=== PATIENT | female | born 1975 | race Hispanic/Latino ===

== ENCOUNTER 2017-08-02 08:27 | Outpatient (CLI) | payer OTHER | END 2017-08-02 08:28 | disposition home or self-care (01) | LOC: BICMAMMO 08:27 | PROVIDERS: ATTEND Nurse Practitioner Family | DX: Z80.3 Family history of malignant neoplasm of breast; Z12.31 Encounter for screening mammogram for malignant neoplasm of breast | CPT/HCPCS: 77063; 77067 ==

== ENCOUNTER 2017-09-25 15:09 | Outpatient (CLI) | payer OTHER | END 2017-09-25 15:10 | disposition home or self-care (01) | LOC: BICRAD 15:09 | PROVIDERS: ATTEND Internal Medicine Interventional Cardiology | DX: M25.561 Pain in right knee (principal); M17.11 Unilateral primary osteoarthritis, right knee ==

== ENCOUNTER 2017-12-31 17:25 | Emergency (ER) | payer OTHER ==
--- NOTE | 2017-12-31 18:00 | RAD ---
THREE VIEWS OF THE RIGHT WRIST: 12/31/17 INDICATION: Fall at [facility] with right wrist pain. COMPARISON: None. IMPRESSION: No acute fracture or subluxation is evident. Soft tissues are normal appearing. Carpal alignment appe ars within normal limits. POS: [facility]
--- NOTE | 2017-12-31 18:02 | RAD ---
THREE VIEWS OF THE RIGHT ANKLE: 12/31/17 INDICATION: Fall at [facility] with right ankle pain. COMPARISON: None. IMPRESSION: No acute fracture or subluxation is evident. POS: [facility]
--- NOTE | 2017-12-31 18:06 | RAD ---
FOUR VIEWS OF THE RIGHT KNEE: 12/31/17 INDICATION: Fall at [facility] [place] with right knee pain. COMPARISON: None. FINDINGS: There is mild osteoarthrosis of the right knee predominantly affecting the patellofemoral and medial femorotibial joint compartments. There is some cortical incongruity and a vertically oriented lucency extending through the patella on the AP and oblique views. This is not as well as seen on the latera l view. There is mild joint capsular distention. IMPRESSION: 1. Findings suspicious for a minimally displaced vertically oriented fracture involving the ortega lla. A dedicated sunrise view of the right knee may be helpful for improved characterization. Alterna tively, right knee CT examination may be helpful. 2. Mild osteoarthrosis of the right knee. POS: [facility]
[2017-12-31] MEDS ORDERED: HYDROcodone/Acetaminophen 10/325 mg Tablet ONE (19:05)
--- NOTE | 2017-12-31 21:43 | CT ---
CT OF THE RIGHT KNEE WITHOUT CONTRAST: 12/31/17 INDICATION: History of fall with concern for possible right patellar knee fracture as seen on the radiograph perf ormed earlier on 12/31/17. FINDINGS: There is a very sublte lucency involving the central aspect of the patella running in a vertical orie ntation, best seen on image 49 of series 3, suspicious for nutrient foramina. No definite cortical st ep-off is seen to suggest presence of a patellar fracture. There is mild osteoarthrosis involving the patellofemoral as well as the femorotibial compartment. Proximal tibiofibular articulation appears w ithin normal limits. There is mild joint capsular distention. The extensor mechanism appears intact. IMPRESSION: 1. Lucency suggested on the prior radiograph is likely related to the trabeculation pattern of t he patella related to nutrient foramina. No definite nondisplaced fracture is evident. 2. Mild osteoarthrosis of the right knee. POS: [facility]
== END 2017-12-31 21:37 | disposition home or self-care (01) ==
LOC: ERS 17:25
DX: S83.91XA Sprain of unspecified site of right knee, initial encounter (principal); F41.9 Anxiety disorder, unspecified; W18.30XA Fall on same level, unspecified, initial encounter

== ENCOUNTER 2018-01-24 09:55 | Outpatient (CLI) | payer OTHER ==
--- NOTE | 2018-01-24 12:39 | MRI ---
MRI RIGHT KNEE WITHOUT CONTRAST: INDICATIONS: History of right knee contusion with popping and cracking of the right knee. History of fall. COMPARISON: Right knee radiograph dated 12/31/[address] evaluation of the right knee dated 12/31/2017. FINDINGS: No appreciable joint effusion is evident. No popliteal cyst is identified. The iliotibial band and popliteus appear within normal limits. There is a horizontally oriented oblique tear involving the anterior junction and body of the media m eniscus with partial medial extrusion. There is some mucoid degeneration seen involving the posterio r aspect of the body of the medial meniscus. There is prominent intrameniscal degeneration involving the body and posterior horn of the lateral meniscus. The ACL, PCL, MCL, and LCLC are intact. The extensor mechanism is intact. There is moderate diffuse chondrosis involving the medial tibiofemoral joint compartment with an area of near full-thickness c hondral thinning seen involving the central aspect of the medial femoral condyle, measuring approxima tely 3 x 2 cm. There are prominent marginal osteophytes affecting all major compartments of the righ t knee. No large full-thickness defect is seen involving the lateral tibiofemoral or patellofemoral compartments. There is some mild surface chondrosis involving the medial patellar ridge and medial p atellar facet. IMPRESSION: 1. Mild osteoarthrosis of the right knee. 2. Medial meniscal tear. 3. Intrameniscal degeneration of the medial and lateral meniscus. POS: [facility]
== END 2018-01-24 09:56 | disposition home or self-care (01) ==
LOC: TBSIIMAG 09:55
PROVIDERS: ATTEND Orthopaedic Surgery
DX: S80.01XA Contusion of right knee, initial encounter (principal); M23.351 Other meniscus derangements, posterior horn of lateral meniscus, right knee; M23.331 Other meniscus derangements, other medial meniscus, right knee; M23.361 Other meniscus derangements, other lateral meniscus, right knee; M17.11 Unilateral primary osteoarthritis, right knee

== ENCOUNTER 2018-02-04 12:55 | Outpatient (CLI) | payer OTHER ==
[2018-02-04 13:49] LABS: #Basophils 0.1 thou/uL (0.0-0.2); #Eosinphils 0.3 thou/uL (0.0-0.7); #Lymphocytes 3.8 thou/uL (1.20-3.40); #Monocytes 0.7 thou/uL (0.11-0.59); #Neutrophils 5.4 thou/uL (1.40-6.50); %Basophils 0.9 % (0.0-1.0); %Eosinophils 2.5 % (0.0-10.0); %Lymphocytes 37.1 % (21.0-51.0); %Monocytes 6.4 % (0.0-10.0); %Neutrophils 53.1 % (42.0-75.0); Hemoglobin 14.7 g/dL (12.0-16.0); Mean Corpuscular HGB CONC 32.9 g/dL (32.0-36.0); Mean Corpuscular Hemoglobin 29.7 pg (27.0-31.0); Mean Corpuscular Volume 90.3 fL (78.0-98.0); Mean Platelet Volume 7.2 fL (7.4-10.4); Platelet Count 433 thou/uL (130-400); RBC Distribution Width 11.6 % (11.5-14.5); Red Blood Cell (RBC) Count 4.96 mill/uL (4.20-5.40); White Blood Cell (WBC) Count 10.2 thou/uL (4.8-10.8)
[2018-02-04 14:20] LABS: Anion Gap 13 mmol/L (10-20); BUN (Urea Nitrogen) 14 mg/dL (7.0-18.7); Calc. Creatinine Clearance 0 mL/min (70-130); Calcium 9.4 mg/dL (7.8-10.44); Carbon Dioxide 24 mmol/L (22-29); Chloride 106 mmol/L (98-107); Estimated GFR-MDRD 83; Glucose 78 mg/dL (70-105); Potassium 4.2 mmol/L (3.5-5.1); Sodium 139 mmol/L (136-145)
--- NOTE | 2018-02-04 17:47 | EKG ---
Test Reason : Blood Pressure : / mmHG Vent. Rate : 066 BPM Atrial Rate : 066 BPM P-R Int : 144 ms QRS Dur : 082 ms QT Int : 404 ms P-R-T Axes : 039 035 042 degrees QTc Int : 423 ms Normal sinus rhythm Normal ECG When compared with ECG of 15-DEC-2000 15:02, No significant change was found Confirmed by DR. William SALAZAR ([id number]) on 02/04/2018 5:47:42 PM Referred By: JESSIE Confirmed By:DR. William SALAZAR
== END 2018-02-04 12:56 | disposition home or self-care (01) ==
LOC: LABBT 12:55
PROVIDERS: ATTEND Orthopaedic Surgery
DX: Z01.818 Encounter for other preprocedural examination (principal); S83.241A Other tear of medial meniscus, current injury, right knee, initial encounter
CPT/HCPCS: 80048; 85025; 93005; 93010

== ENCOUNTER → 2018-02-05 | Day surgery (SDC) | payer OTHER ==
[2018-02-04 13:34] VITALS: BMI 40.1
--- NOTE | 2018-02-04 13:57 | HP ---
HISTORY OF PRESENT ILLNESS: The patient is a 42-year-old female who injured her right knee when she slipped and fell at [facility] on 12/30/2017. She has had persistent pain, popping, catching, and swell ing despite rest, restriction of activities and use of antiinflammatory medications. She has also us ed a knee immobilizer. She has had no previous knee problems. PAST MEDICAL HISTORY: The patient is otherwise in good health. She has no major medical problems. CURRENT MEDICATIONS: She is not taking any routine medications. ALLERGIES: She has no known allergies. FAMILY HISTORY/SOCIAL HISTORY/REVIEW OF SYSTEMS: Otherwise unremarkable. PHYSICAL EXAMINATION: GENERAL: Reveals a healthy heavyset female. HEENT: Unremarkable. NECK: Supple. CHEST: Clear. HEART: Regular rate and rhythm. ABDOMEN: Soft, nontender. PELVIC/RECTAL/BREAST: Exams are deferred. EXTREMITIES: Pertinent findings of the right knee. There is no definite effusion or erythema. Ther e is normal alignment. There is tenderness over the medial joint line. There is pain with Reginald' s maneuver. Range of motion is 0 to 125 degrees. There is no instability. Neurovascular exam is in tact. Distal pulses are trace. There is a mildly right antalgic gait. Neurovascular exam is intact . LABORATORY AND X-RAY FINDINGS: X-rays of the right knee taken on 12/31/2017 revealed a questionable nondisplaced vertical fracture of the patella and some mild medial joint space narrowing. CT scan pe rformed on the same day revealed no definite fractures. Subsequent standing x-rays reveal some narro wing medially, but there is still reasonable joint space remaining. MRI scan of the right knee revea ls mild degenerative changes and a medial meniscal tear. IMPRESSION: Internal derangement of right knee with medial meniscal tear, possible component of dege nerative joint disease. PLAN: Arthroscopy right knee with partial medial meniscectomy and/or debridement and shaving. The n ature of the surgery, length of recovery, and potential complications such as infection, loss of sarai on, incomplete relief, neurovascular injury, thromboembolic phenomena, post-traumatic degenerative ar thritis, recurrent tear and need for additional treatment or repeat surgery have been discussed in de tail.
[~2018-02-05] MED LIST: Bupivacaine HCl 0.5%/Epinephrine 1:200,000/PF 30 ml Vial ONE; CEFAZOLIN/Water 2 GM/20 ML SYRINGE ONE; Fentanyl 100 MCG/2 ML VIAL ONE; Midazolam HCl 2 mg/2 ml Vial ONE; Morphine 4 MG/ML VIAL ONE
--- NOTE | 2018-02-05 13:03 | OP ---
DATE OF PROCEDURE: 02/05/2018 SURGEON: Randolph Aguilar M.D. ANESTHESIA: General. PREOPERATIVE DIAGNOSES: Medial meniscal tear, degenerative joint disease right knee. POSTOPERATIVE DIAGNOSES: Medial meniscal tear, degenerative joint disease right knee. PROCEDURE: Arthroscopy right knee with partial medial meniscectomy. OPERATIVE FINDINGS: Examination under anesthesia showed the knee to be stable. At arthroscopy, ther e was grade II and grade III changes of the central portion of the patella, but no areas of exposed b one. Examination of the medial compartment revealed diffuse grade II and III changes of the weightbe aring surface of the medial femoral condyle and a complex tear of the mid and posterior horns of the medial meniscus. There was also approximately a 1 x 1.5 cm area of exposed bone on the medial edge o f the medial tibial plateau. ACL was intact. There were some mild degenerative changes in the later al compartment and some very minimal fraying of the free border of the lateral meniscus, but it was i ntact. No areas needing debridement. NARRATIVE REPORT: After satisfactory anesthesia was induced in the supine position, the patient was placed in a leg quevedo and prepped and draped in the routine manner. The right leg was elevated, exs anguinated with an Esmarch bandage, and the tourniquet inflated to 300 mmHg. [place] arthroscope was introduced into the anterolateral portal, probe through an anteromedial portal, and inflow and outfl ow accomplished through the scope using the WhoSay arthroscopy pump. Arthroscopy was carried out an d the above findings were noted. Intermittently, instruments and camera were interchanged between th e anteromedial and anterolateral portals for best visualization. The posterior horn and mid aspect o f the medial meniscus was debrided with the use of basket forceps and motorized shaver. The remainin g rim was contoured and probed and found to be stable. There was still intact rim of approximately 2 -3 mm. The medial femoral condyle was debrided as was the patella articular surface. All compartmen ts were again visualized and no additional pathology found. The knee was copiously irrigated through the scope and all instruments were withdrawn. 20 mL of 0.5% Marcaine with epinephrine was instilled into the knee joint and an additional 10 mL injected about the portal sites. The portal sites were closed with 3-0 nylon and a sterile bulky compressive dressing was applied and the tourniquet deflate d after 22 minutes. The foot promptly pinked up. The patient was awakened and taken to [facility] in stable condition. There were no apparent intraoperative complications. The estimated blood los s was negligible. The patient will be discharged home in satisfactory condition, instructed on ice, elevation, use of c rutches, and home exercise program with the Physical Therapy Department. She was given written wound care instructions and prescription for [place] 7.5 for pain, 40 tablets. She will be rechecked by my medical delivery driver in approximately 10 days for suture removal and will be rechecked in my office by mekhi newton in approximately 3 weeks or sooner if there are any problems prior to that time.
== END ==
LOC: SDC 05:51
PROVIDERS: ATTEND Orthopaedic Surgery
PROC: 0SBC4ZZ Excision of Right Knee Joint, Percutaneous Endoscopic Approach (ICD-10-PCS; principal; 2018-02-05)
DX: S83.241A Other tear of medial meniscus, current injury, right knee, initial encounter (principal); W01.0XXA Fall on same level from slipping, tripping and stumbling without subsequent striking against object, initial encounter
CPT/HCPCS: 80048; 85025; 93005; 93010; 96374; G8978-GP-CL; G8979-GP-CL; G8980-GP-CL; J0670; J2250; J2270; J3010

== ENCOUNTER 2018-06-06 07:25 | Outpatient (CLI) | payer OTHER ==
--- NOTE | 2018-06-06 09:49 | MRI ---
MRI OF LUMBAR SPINE NONCONTRAST: INDICATION: Lumbar radiculopathy. FINDINGS: No acute marrow edema. Conus medullaris is normal in morphology and terminates at the T12-L1 level. There is scattered intrinsic T1 hyperintensity of the imaged low thoracic and lumbar spine vertebrae likely relating to interosseous hemangiomas. No acute pathology of the visualized retroperitoneum. L5-S1: There is no significant central canal or foraminal stenosis. L4-5: Mild central canal stenosis due to broad-based disk bulge with a small focal central protrusio n. No significant foraminal stenosis. There is reduced T2 signal of the disk compatible with degene ration. L3-4: No significant central canal or neural foraminal compromise. L2-3: No significant central canal or neural foraminal compromise. L1-2: No central canal or neural foraminal compromise. IMPRESSION: 1. Disk bulge and small superimposed central protrusion at L4-5, with mild central canal stenosis. 2. Additional findings are detailed above. POS: [facility]
== END 2018-06-06 07:26 | disposition home or self-care (01) ==
LOC: BICMRI 07:25
PROVIDERS: ATTEND Neurological Surgery
DX: M51.16 Intervertebral disc disorders with radiculopathy, lumbar region (principal); M48.061 Spinal stenosis, lumbar region without neurogenic claudication
CPT/HCPCS: 72148

== ENCOUNTER 2018-07-14 05:34 | Day surgery (SDC) | payer OTHER ==
[2018-07-08 08:53] VITALS: BMI 43.4
[2018-07-14] MEDS ORDERED: Fentanyl 250 MCG/5 ML VIAL ONE (06:13)
[2018-07-14] MEDS ORDERED: Midazolam HCl 2 mg/2 ml Vial ONE (06:13)
[2018-07-14] MEDS ORDERED: Thrombin 5000 UNITS/5 ML VIAL ONE (06:18)
[2018-07-14] MEDS ORDERED: Bupivacaine HCl 0.5%/Epinephrine 1:200,000/PF 30 ml Vial ONE (06:18)
[2018-07-14] MEDS ORDERED: Fentanyl 100 MCG/2 ML VIAL ONE ×3 (08:21→09:06)
[2018-07-14] MEDS ORDERED: Morphine 4 MG/ML VIAL ONE (08:43)
--- NOTE | 2018-07-14 09:19 | OP ---
DATE OF PROCEDURE: 07/14/2018 SENIOR GL ACCOUNTANT: Zbigniew Warren PA-C INDICATION: Pain. DIAGNOSES: Lumbar stenosis with lumbar radiculopathy. PROCEDURES PERFORMED: L4-L5 bilateral hemilaminectomy, medial facetectomy, and decompression. ANESTHESIA: General. DESCRIPTION OF PROCEDURE: The patient was brought into the operating room, placed under general anesthesia. She was flipped from the supine to prone position on the operating room table. A linear incision was planned over L4-L5. After prepping and draping and after preoperative pause, the incision was created. The soft tissues were swept away from midline. A self-retaining retractor was placed. After identifying the appropriate level of C-arm fluoroscopy, a bilateral hemilaminectomy was performed at the L4-L5 interspace. A high-speed cutting drill bit as well as 2, 3, and 4 mm Kerrisons were used to perform a hemilaminectomy along the inferior aspect of L4 and the superior aspect of L5, so both descending L5 nerve roots were well decompressed. The wound was irrigated. Hemostasis was maintained throughout. The wound was then closed in anatomic layers and a pressure dressing was applied. There were no known procedural complications. Job ID: [id number]
[2018-07-14] MEDS ORDERED: HYDROmorphone 2 MG/ML VIAL ONE (09:28)
[2018-07-14] MEDS ORDERED: Acetaminophen/Codeine 30-300mg Tablet ONE (12:05)
[2018-07-14] MEDS ORDERED: Ondansetron PF 4 MG/2 ML Vial ONE ×2 (14:33→15:27)
[2018-07-14] MEDS ORDERED: Lidocaine 1% PF 5 ML VIAL ONE (15:27)
[2018-07-14] MEDS ORDERED: Dexamethasone 20 MG/5 ML VIAL ONE (15:27)
[2018-07-14] MEDS ORDERED: Glycopyrrolate 0.2 MG/ML 5 ML SYRINGE ONE (15:27)
[2018-07-14] MEDS ORDERED: PROPOFOL 200 MG/20 ML VIAL ONE (15:27)
[2018-07-14] MEDS ORDERED: Rocuronium Bromide 10 MG/ML (10ML VIAL) ONE (15:27)
== END 2018-07-14 16:00 | disposition home or self-care (01) ==
LOC: SDC 05:34
PROVIDERS: ATTEND Neurological Surgery
PROC: 01NB0ZZ Release Lumbar Nerve, Open Approach (ICD-10-PCS; principal; 2018-07-14)
DX: M48.061 Spinal stenosis, lumbar region without neurogenic claudication (principal); M51.16 Intervertebral disc disorders with radiculopathy, lumbar region; F41.9 Anxiety disorder, unspecified
CPT/HCPCS: 76000; J0670; J1100; J1170; J2001; J2250; J2270; J2405; J2704; J3010

== ENCOUNTER 2018-08-14 11:41 | Outpatient (CLI) | payer OTHER ==
--- NOTE | 2018-08-14 14:14 | RAD ---
TWO VIEWS CHEST: DATE: 08/14/2018. COMPARISON: None. HISTORY: Shortness of breath with exertion. FINDINGS: No pneumothorax, pleural fluid, focal consolidation, or alveolar edema. Heart and mediastinal contou rs are unremarkable. Multilevel mild disk space narrowing and anterior osteophyte formation within t he mid thoracic spine. IMPRESSION: No acute findings. POS: [facility]
== END 2018-08-14 11:42 | disposition home or self-care (01) ==
LOC: BICRAD 11:41
PROVIDERS: ATTEND Specialist
DX: R06.00 Dyspnea, unspecified (principal)
CPT/HCPCS: 71046

== ENCOUNTER 2018-12-04 07:19 | Outpatient (CLI) | payer OTHER ==
--- NOTE | 2018-12-04 08:02 | ULT ---
Abdominal Ultrasound: Multiple grayscale images of right upper quadrant obtained according to protocol. INDICATION: Pain FINDINGS: Limited visualization due to overlying body wall soft tissues Liver: Hepatic steatosis. Gallbladder: Normal Gallbladder wall: Normal. Sanchez's Sign: Negative Common bile duct is normal. Ascites: None Spleen: Unremarkable. Pancreas: Partially obscured by bowel content, limiting assessment. Kidneys: No acute abnormalities within limitations. Aorta/IVC: No acute process. IMPRESSION: No acute abnormalities. Hepatic steatosis. Correlate with liver function enzymes.
== END 2018-12-04 07:20 | disposition home or self-care (01) ==
LOC: BICULT 07:19
PROVIDERS: ATTEND Specialist
DX: R10.9 Unspecified abdominal pain (principal); K76.0 Fatty (change of) liver, not elsewhere classified
CPT/HCPCS: 76700

== ENCOUNTER 2018-12-15 08:49 | Outpatient (CLI) | payer OTHER ==
--- NOTE | 2018-12-15 10:58 | MRI ---
MRI of the lumbar spine with and without contrast: 12/15/2018 HISTORY: Lumbar radiculopathy, prior lumbar spine surgery, patient reports pain numbness and weakness of right leg TECHNIQUE: Multiplanar multisequence MR imaging of lumbar spine obtained with and without contrast FINDINGS: The sagittal STIR imaging demonstrates no focal area of osseous marrow edema. On the basis of 5 lumbar type vertebral bodies, the conus medullaris terminates at the T12-L1 level. There is no anterolisthesis or retrolisthesis noted within the lumbar spine. There is a T1 and T2 hyperintense lesion within the T12 vertebral body posteriorly on the left extend ing into the left pedicle. This is most consistent with a benign hemangioma. There is a similar lesion noted within the L3 vertebral body. T12-L1: Mild bilateral facet hypertrophy. Intervertebral disc height and signal intensity is within n ormal limits with no significant central canal or neural foraminal stenosis L1-2: There is a small central/left paracentral disc with no associated central canal stenosis. Mild bilateral facet hypertrophy with no significant neural foraminal stenosis. L2-3: Intervertebral disc height and signal intensity is within normal limits with no significant randall tral canal or neural foraminal stenosis. L3-4: Mild bilateral facet hypertrophy. No significant central canal or neural foraminal stenosis L4-5: There is disc space narrowing and disc desiccation with a small central disc protrusion. There is mild bilateral facet hypertrophy. There is no significant central canal or neural foraminal stenosis L5-S1: Mild bilateral facet hypertrophy with no significant central canal or neural foraminal stenosi s. Postcontrast imaging demonstrates no abnormal enhancement involving the intervertebral discs, the felix ged osseous structures, or the contents of the thecal sac. There is enhancement involving the posterior paraspinal musculature centrally at L5 suggesting scar associated with prior surgery. Image retroperitoneal structures demonstrate no acute findings. IMPRESSION: Postoperative and degenerative changes within the lumbar spine with no significant centra l canal or neural foraminal stenosis seen.
[2018-12-15] MEDS ORDERED: Gadobenate Dimeglumine 529 MG/1 ML (20ML VIAL) ONE (14:34)
== END 2018-12-15 08:50 | disposition home or self-care (01) ==
LOC: BICMRI 08:49
PROVIDERS: ATTEND Neurological Surgery
DX: M47.26 Other spondylosis with radiculopathy, lumbar region (principal); Z98.890 Other specified postprocedural states
CPT/HCPCS: 72158; A9577

== ENCOUNTER 2018-12-25 08:18 | Outpatient (CLI) | payer OTHER ==
--- NOTE | 2018-12-25 12:29 | NM ---
EXAM: Nuclear medicine hepatobiliary scan HISTORY: Right upper quadrant abdominal pain TECHNIQUE: A nuclear medicine hepatobiliary scan was performed after administration of 5.4 mCi of donna hnetium 99m mebrofenin. Gallbladder ejection fraction was determined after patient was administered 8 ounces Ensure 1 hour after injection. COMPARISON: None FINDINGS: Prompt uptake of the radiopharmaceutical by the liver is seen. No photopenic liver defects are seen. Biliary activity is seen within 6 minutes. Gallbladder activity is seen within 15 minutes. Bowel activity is after the administration of Ensure. A gallbladder ejection fraction was calculated at 95%. IMPRESSION: Normal hepatobiliary scan
== END 2018-12-25 08:19 | disposition home or self-care (01) ==
LOC: NM 08:18
PROVIDERS: ATTEND Specialist
DX: K81.0 Acute cholecystitis (principal)
CPT/HCPCS: 78227; A9537

== ENCOUNTER 2019-01-16 07:28 | Outpatient (CLI) | payer OTHER | END 2019-01-16 07:29 | disposition home or self-care (01) | PROVIDERS: ATTEND Neurological Surgery | DX: M54.16 Radiculopathy, lumbar region (principal) ==

== ENCOUNTER 2019-07-09 08:41 | Outpatient (CLI) | payer OTHER ==
--- NOTE | 2019-07-09 12:42 | MMO ---
Bilateral MAMMO Bilat Screen [facility]. CLINICAL HISTORY: Patient is 44 years old and is seen for screening. The patient has the following family history of breast cancer: mother, at age 56, bilateral, Bilateral mastectomy . The patient has no personal history of cancer. VIEWS: The views performed were: bilateral craniocaudal with tomosynthesis; bilateral mediolateral oblique with tomosynthesis; bilateral exaggerated craniocaudal; and left mediolateral oblique. FILMS COMPARED: The present examination has been compared to prior imaging studies performed at [facility] on 08/14/2005, 12/31/2005 and 08/02/2017. This study has been interpreted with the assistance of computer-aided detection. MAMMOGRAM FINDINGS: There are scattered fibroglandular densities. Benign calcifications are noted bilaterally. There are no suspicious masses, suspicious calcifications, or new areas of architectural distortion. IMPRESSION: THERE IS NO MAMMOGRAPHIC EVIDENCE OF MALIGNANCY. A ROUTINE FOLLOW-UP MAMMOGRAM IN 1 YEAR IS RECOMMENDED. THE RESULTS OF THIS EXAM WERE SENT TO THE PATIENT. ACR BI-RADS Category 2 - Benign finding MAMMOGRAPHY NOTE: 1. A negative mammogram report should not delay a biopsy if a dominant of clinically suspicious mass is present. 2. Approximately 10% to 15% of breast cancers are not detected by mammography. 3. Adenosis and dense breasts may obscure an underlying neoplasm. Reported by: KISHOR STANLEY MD Electonically Signed: [id number]
== END 2019-07-09 08:42 | disposition home or self-care (01) ==
LOC: BICMAMMO 08:41
PROVIDERS: ATTEND Nurse Practitioner Family
DX: Z12.31 Encounter for screening mammogram for malignant neoplasm of breast (principal); Z80.3 Family history of malignant neoplasm of breast
CPT/HCPCS: 77063; 77067

== ENCOUNTER 2019-07-13 11:22 | Outpatient (CLI) | payer OTHER ==
--- NOTE | 2019-07-13 12:10 | RAD ---
Lumbar spine 4 views flexion and extension HISTORY: Low back pain. FINDINGS: There are 5 lumbar type vertebrae. Pedicles are intact. Measured from L1 to L5, there is 15 degrees rightward convex curvature on the standing frontal view. Vertebral body heights and alignment are maintained. No abnormal translational motion upon flexion or extension. Mild osteophyto sis of the lower lumbar spine. IMPRESSION: Mild degenerative changes. Rightward convex curvature. No acute osseous abnormalities are demonstrated.
== END 2019-07-13 11:23 | disposition home or self-care (01) ==
LOC: RAD 11:22
PROVIDERS: ATTEND Nurse Practitioner Family
DX: M54.5 Low back pain (principal); M47.816 Spondylosis without myelopathy or radiculopathy, lumbar region; M43.9 Deforming dorsopathy, unspecified
CPT/HCPCS: 72120

== ENCOUNTER 2020-07-22 07:51 | Outpatient (CLI) | payer OTHER ==
--- NOTE | 2020-07-22 08:17 | RAD ---
4 views left knee: 07/22/2020 COMPARISON: None HISTORY: Knee pain FINDINGS: There is prominent medial compartment narrowing. There is osteophyte formation involving th e medial tibial plateau and medial femoral condyle. No significant lateral compartment narrowing. There is patellofemoral joint space narrowing with posterior patellar osteophyte formation. No knee j oint effusion, fracture, or dislocation. IMPRESSION: Multicompartment degenerative joint disease as detailed above.
== END 2020-07-22 07:52 | disposition home or self-care (01) ==
LOC: BICRAD 07:51
PROVIDERS: ATTEND Specialist
DX: M25.562 Pain in left knee (principal); M13.862 Other specified arthritis, left knee; M17.12 Unilateral primary osteoarthritis, left knee

== ENCOUNTER 2021-04-12 09:09 | Outpatient (CLI) | payer OTHER, MEDICARE | END 2021-04-12 09:10 | disposition home or self-care (01) | LOC: BICRAD 09:09 | PROVIDERS: ATTEND Internal Medicine Rheumatology | DX: M25.552 Pain in left hip (principal) ==

== ENCOUNTER 2021-09-25 18:45 | Emergency (ER) | payer MEDICARE, OTHER ==
[~2021-09-25 18:45] MED LIST changes: -Bupivacaine HCl 0.5%/Epinephrine 1:200,000/PF 30 ml Vial ONE; -CEFAZOLIN/Water 2 GM/20 ML SYRINGE ONE; -Fentanyl 100 MCG/2 ML VIAL ONE; +Iopamidol-370 76% 500 ML 1 ML ONE; -Midazolam HCl 2 mg/2 ml Vial ONE; -Morphine 4 MG/ML VIAL ONE
[2021-09-25] MEDS ORDERED: Ondansetron PF 4 MG/2 ML Vial ONE (19:16)
[2021-09-25] MEDS ORDERED: Morphine 4 MG/ML VIAL ONE (19:16)
[2021-09-25 19:26] LABS: #Basophils 0.1 thou/uL (0.0-0.2); #Eosinphils 0.2 thou/uL (0.0-0.7); #Lymphocytes 3.2 thou/uL (1.20-3.40); #Monocytes 0.9 thou/uL (0.11-0.59); #Neutrophils 7.8 thou/uL (1.40-6.50); %Basophils 0.8 % (0.0-1.0); %Eosinophils 1.7 % (0.0-10.0); %Lymphocytes 26.5 % (21.0-51.0); Hemoglobin 15.3 g/dL (12.0-16.0); Mean Corpuscular HGB CONC 32.8 g/dL (32.0-36.0); Mean Corpuscular Hemoglobin 30.2 pg (27.0-31.0); Mean Corpuscular Volume 92.3 fL (78.0-98.0); Mean Platelet Volume 6.8 fL (7.4-10.4); Platelet Count 425 thou/uL (130-400); RBC Distribution Width 11.9 % (11.5-14.5); Red Blood Cell (RBC) Count 5.06 mill/uL (4.20-5.40); White Blood Cell (WBC) Count 12.1 thou/uL (4.8-10.8)
[2021-09-25 19:48] LABS: ALT (SGPT) 37 U/L (8-55); AST (SGOT) 30 U/L (5-34); Alkaline Phosphatase 55 U/L (40-110); Anion Gap 12 mmol/L (10-20); BUN (Urea Nitrogen) 10 mg/dL (7.0-18.7); Bilirubin, Total 0.4 mg/dL (0.2-1.2); CK (CPK) 92 U/L (29-168); Calc. Creatinine Clearance 0 mL/min (70-130); Calcium 9.2 mg/dL (7.8-10.44); Carbon Dioxide 26 mmol/L (22-29); Chloride 105 mmol/L (98-107); Globulin 3.1 g/dL (2.4-3.5); Glucose 86 mg/dL (70-105); Lipase 34 U/L (8-78); Protein, Total 7.1 g/dL (6.0-8.3); Sodium 139 mmol/L (136-145)
[2021-09-25] MEDS ORDERED: Pantoprazole 40 MG VIAL ONE (20:03)
[2021-09-25 20:21] LABS: Bilirubin Negative (Negative); Blood, Urine Negative (Negative); Clarity Clear (Clear); Glucose, Urine (Dipstick) Normal (Negative); Ketone, Urine Negative (Negative); Leukocyte Negative Leu/uL (Negative); Nitrite Negative (Negative); Protein, Urine (Dipstick) Negative (Neg-Trace); Specific Gravity, Urine 1.024 (1.002-1.036); Urobilinogen Normal mg/dL (Less than 2)
== END 2021-09-25 20:54 | disposition home or self-care (01) ==
LOC: ERS 18:45
DX: R10.11 Right upper quadrant pain (principal)
CPT/HCPCS: 36415; 74177; 76705; 80053; 81003; 82550; 83690; 84484; 85025; 93005; 96374; 96375; C9113; J2270; J2405; Q9967

== ENCOUNTER 2021-12-15 17:03 | Emergency (ER) | payer MEDICARE ==
[2021-12-15 18:53] LABS: Bilirubin Negative (Negative); Blood, Urine Negative (Negative); Clarity Clear (Clear); Glucose, Urine (Dipstick) Normal (Negative); Ketone, Urine Negative (Negative); Leukocyte Negative Leu/uL (Negative); Nitrite Negative (Negative); Protein, Urine (Dipstick) Negative (Neg-Trace); Specific Gravity, Urine 1.004 (1.002-1.036); Urobilinogen Normal mg/dL (Less than 2); pH, Urine 6.5 (5.0-9.0)
[2021-12-15 19:38] LABS: SARS-CoV-2 NAA Rapid Test DETECTED (NotDetected)
[2021-12-15] MEDS ORDERED: Acetaminophen 500 MG TAB ONE (19:48)
[2021-12-15] MEDS ORDERED: Ondansetron ODT 4 MG TAB ONE (19:48)
== END 2021-12-15 20:27 | disposition home or self-care (01) ==
LOC: ERS 17:03
DX: U07.1 COVID-19 (principal); M25.562 Pain in left knee
CPT/HCPCS: 0240U; 71045; 73564; 81003; 82962; 99283; 36416; Q0162

== ENCOUNTER 2022-02-01 11:15 | Outpatient (CLI) | payer MEDICARE | END 2022-02-01 11:16 | disposition home or self-care (01) | LOC: BICMAMMO 11:15 | PROVIDERS: ATTEND Specialist | DX: Z12.31 Encounter for screening mammogram for malignant neoplasm of breast (principal); Z80.3 Family history of malignant neoplasm of breast; Z90.13 Acquired absence of bilateral breasts and nipples | CPT/HCPCS: 77063; 77067 ==

== ENCOUNTER 2023-07-04 15:23 | Outpatient (CLI) | payer MEDICARE | END 2023-07-04 15:24 | disposition home or self-care (01) | LOC: BICMAMMO 15:23 | PROVIDERS: ATTEND Specialist | DX: Z12.31 Encounter for screening mammogram for malignant neoplasm of breast (principal); N63.15 Unspecified lump in the right breast, overlapping quadrants; N64.89 Other specified disorders of breast; Z80.3 Family history of malignant neoplasm of breast; Z85.3 Personal history of malignant neoplasm of breast; Z90.13 Acquired absence of bilateral breasts and nipples | CPT/HCPCS: 77063; 77067 ==

== ENCOUNTER 2023-07-09 09:38 | Outpatient (CLI) | payer MEDICARE | END 2023-07-09 09:39 | disposition home or self-care (01) | LOC: BICMAMMO 09:38 | PROVIDERS: ATTEND Specialist | DX: N63.15 Unspecified lump in the right breast, overlapping quadrants (principal); N64.89 Other specified disorders of breast | CPT/HCPCS: 76642; 77066; G0279 ==

== ENCOUNTER 2024-04-08 08:50 | Outpatient (CLI) | payer MEDICARE | END 2024-04-08 08:51 | disposition home or self-care (01) | LOC: BICULT 08:50 | PROVIDERS: ATTEND Specialist | DX: R10.9 Unspecified abdominal pain (principal); K76.0 Fatty (change of) liver, not elsewhere classified; R16.0 Hepatomegaly, not elsewhere classified | CPT/HCPCS: 76700 ==

== ENCOUNTER 2024-04-27 13:11 | Outpatient (CLI) | payer MEDICARE ==
[2024-04-27] MEDS ORDERED: Sincalide 5 MCG VIAL ONE (14:20)
[2024-04-27] MEDS ORDERED: Bacteriostatic Normal Saline 30 ML VIAL ONE (14:21)
[2024-04-27] MEDS ORDERED: Sterile Water 10 ML ONE (14:21)
== END 2024-04-27 13:12 | disposition home or self-care (01) ==
LOC: NM 13:11
PROVIDERS: ATTEND Specialist
DX: K81.1 Chronic cholecystitis (principal); R91.1 Solitary pulmonary nodule
CPT/HCPCS: 78227; A9537; J2805

== ENCOUNTER 2024-07-10 13:46 | Outpatient (CLI) | payer MEDICARE | END 2024-07-10 13:47 | disposition home or self-care (01) | LOC: BICMAMMO 13:46 | PROVIDERS: ATTEND Specialist | DX: R92.8 Other abnormal and inconclusive findings on diagnostic imaging of breast (principal) | CPT/HCPCS: 77066; G0279 ==

== ENCOUNTER 2025-02-27 10:46 | Emergency (ER) | payer MEDICARE ==
[2025-02-27] MEDS ORDERED: Ibuprofen 800 MG TAB ONE (12:09)
== END 2025-02-27 12:24 | disposition home or self-care (01) ==
LOC: ERS 10:46
DX: M17.12 Unilateral primary osteoarthritis, left knee (principal); E11.9 Type 2 diabetes mellitus without complications; E78.5 Hyperlipidemia, unspecified; Z55.6 Problems related to health literacy
CPT/HCPCS: 99283